=== PATIENT | male | born 1990 | race Two or more races ===

== ENCOUNTER 2017-09-22 12:26 | Emergency (ER) | payer MEDICAID ==
[~2017-09-22] VITALS: Ht 170.2 cm; Wt 132.7 kg
[~2017-09-22 12:26] MED LIST: ALBU8HFA PO
[2017-09-22 12:49] LABS: BASOPHILS # (AUTO) 0.2 X10'3 (0-0.2); BASOPHILS % (AUTO) 2.3 % (0-1); EOSINOPHILS # (AUTO) 0.5 X10'3 (0-0.9); EOSINOPHILS % (AUTO) 5.1 % (0-6); HEMATOCRIT 47.1 % (42.0-52.0); HEMOGLOBIN 15.9 g/dl (14.0-17.9); LYMPHOCYTES # (AUTO) 2.9 X10'3 (1.1-4.8); MEAN CORPUSCULAR HGB CONC 33.7 % (33.0-36.5); MEAN PLATELET VOLUME 8.5 FL (7.4-10.4); MONOCYTES # (AUTO) 0.9 X10'3 (0-0.9); MONOCYTES % (AUTO) 8.2 % (2-12); NEUTROPHILS # (AUTO) 5.9 X10'3 (1.8-7.7); NEUTROPHILS % (AUTO) 56.4 % (42-75); PLATELET COUNT 261 X10'3 (140-440); RED BLOOD COUNT 5.67 X10'6 (4.70-6.10); RED CELL DISTRIBUTION WIDTH 13.1 % (11.5-14.5); WHITE BLOOD COUNT 10.4 X10'3 (4.5-11.0)
[2017-09-22 12:56] LABS: PARTIAL THROMBOPLASTIN TIME 27 SECONDS (22-32); PROTHROMBIN TIME 10.3 SECONDS (9.0-12.0)
[2017-09-22 13:08] LABS: ALANINE AMINOTRANSFERASE 21 U/L (12-78); ALBUMIN 3.8 G/DL (3.4-5.0); ALKALINE PHOSPHATASE 102 IU/L (46-116); ANION GAP 8 (8-16); ASPARTATE AMINO TRANSFERASE 14 U/L (10-37); BILIRUBIN,TOTAL 0.3 MG/DL (0.1-1.0); BLOOD UREA NITROGEN 17 MG/DL (7-18); BUN/CREATININE RATIO 18.9 (5.4-32.0); CALCIUM 9.5 MG/DL (8.5-10.1); CHLORIDE 106 MMOL/L (99-107); GLUCOSE 95 MG/DL (70-104); POTASSIUM 4.4 MMOL/L (3.5-5.1); SODIUM 143 MMOL/L (135-145); TOTAL CARBON DIOXIDE 29.3 MMOL/L (24-32); TOTAL PROTEIN 7.6 G/DL (6.4-8.2); eGFR > 90 ML/MIN
[2017-09-22] MEDS ORDERED: aspirin 325mg tablet PO STA (13:11)
[2017-09-22] MEDS ORDERED: nitroGLYCERIN 0.4mg SUBLingual tab SL STA ×2 (13:11→13:27)
[2017-09-22 13:30] LABS: D-DIMER 0.22 MG/L FEU (0-0.50)
[2017-09-22] MEDS ORDERED: nitroGLYCERIN 0.4mg SUBLingual tab SL PRN (13:35)
[2017-09-22] MEDS ORDERED: PANT-47 PO (13:40)
[2017-09-22] MEDS ORDERED: IBUP-1984 PO (13:40)
[2017-09-22 13:57] VITALS: BP 114/47
== END 2017-09-22 13:58 | disposition home or self-care (01) ==
LOC: ER 12:27
DX: M94.0 Chondrocostal junction syndrome [Tietze] (principal); M54.31 Sciatica, right side; J45.909 Unspecified asthma, uncomplicated; F12.10 Cannabis abuse, uncomplicated; Z60.2 Problems related to living alone; Z59.0 Homelessness; Z79.82 Long term (current) use of aspirin
CPT/HCPCS: 36415; 71045; 80053; 84484; 85025; 85379; 85610; 85730; 93005; 99285

== ENCOUNTER 2017-10-05 00:31 | Emergency (ER) | payer MEDICAID ==
[~2017-10-05] VITALS: Ht 170.2 cm; Wt 133.6 kg
[~2017-10-05 00:31] MED LIST changes: +IBUP-1984 PO; +PANT-47 PO
[2017-10-05] MEDS ORDERED: dexamethasone 4mg tablet PO ONE (02:30)
[2017-10-05] MEDS ORDERED: ipratropium/albuterol 3ml nebule NEB ONE (02:30)
[2017-10-05 03:26] VITALS: BP 122/74
== END 2017-10-05 03:29 | disposition home or self-care (01) ==
LOC: ER 00:31
DX: J45.909 Unspecified asthma, uncomplicated (principal); F12.10 Cannabis abuse, uncomplicated; Z59.0 Homelessness; Z60.2 Problems related to living alone; Z88.8 Allergy status to other drugs, medicaments and biological substances
CPT/HCPCS: 93005; 94640; 94760; 99284; J8540

== ENCOUNTER 2019-08-12 01:23 | Emergency (ER) | payer MEDICAID, OTHER ==
[~2019-08-12] VITALS: Ht 170.2 cm; Wt 172.7 kg
[~2019-08-12 01:23] MED LIST changes: -IBUP-1984 PO
[2019-08-12] MEDS ORDERED: predniSONE 20 mg tablet PO ONE (01:45)
[2019-08-12] MEDS ORDERED: ipratropium/albuterol 3ml nebule NEB ONE (01:45)
[2019-08-12] MEDS ORDERED: PRED20TA PO (02:04)
[2019-08-12] MEDS ORDERED: ALBU8.5H8 INH (02:04)
[2019-08-12 02:30] VITALS: BP 110/65
== END 2019-08-12 02:31 | disposition home or self-care (01) ==
LOC: ER 01:23
DX: J45.901 Unspecified asthma with (acute) exacerbation (principal); F12.90 Cannabis use, unspecified, uncomplicated; Z60.2 Problems related to living alone; Z59.0 Homelessness; Z88.8 Allergy status to other drugs, medicaments and biological substances; Z79.899 Other long term (current) drug therapy
CPT/HCPCS: 94640; 99283; J7512; 94760

== ENCOUNTER 2020-12-04 13:44 | Emergency (ER) | payer SELFPAY ==
[~2020-12-04] VITALS: Ht 170.2 cm; Wt 160.3 kg
[~2020-12-04 13:44] MED LIST changes: +ALBU8.5H8 INH
[2020-12-04 14:19] VITALS: BP 142/106
[2020-12-04 14:56] LABS: BASOPHILS # (AUTO) 0.1 X10'3 (0-0.2); EOSINOPHILS # (AUTO) 1.1 X10'3 (0-0.9); EOSINOPHILS % (AUTO) 8.3 % (0-6); HEMATOCRIT 42.2 % (42.0-52.0); HEMOGLOBIN 13.5 g/dl (14.0-17.9); LYMPHOCYTES # (AUTO) 3.2 X10'3 (1.1-4.8); LYMPHOCYTES % (AUTO) 24.5 % (21-51); MEAN CORPUSCULAR HEMOGLOBIN 25.4 PG (27.0-31.0); MEAN CORPUSCULAR VOLUME 79.3 FL (78-98); MEAN PLATELET VOLUME 7.1 FL (7.4-10.4); MONOCYTES # (AUTO) 0.8 X10'3 (0-0.9); MONOCYTES % (AUTO) 6.1 % (2-12); NEUTROPHILS # (AUTO) 7.7 X10'3 (1.8-7.7); NEUTROPHILS % (AUTO) 60.1 % (42-75); PLATELET COUNT 343 X10'3 (140-440); RED BLOOD COUNT 5.32 X10'6 (4.70-6.10); WHITE BLOOD COUNT 12.9 X10'3 (4.5-11.0)
[2020-12-04 15:08] LABS: ALANINE AMINOTRANSFERASE 30 U/L (12-78); ALBUMIN 3.6 G/DL (3.4-5.0); ALBUMIN/GLOBULIN RATIO 0.8 (1.1-1.5); ALKALINE PHOSPHATASE 103 IU/L (46-116); ANION GAP 8 (8-16); ASPARTATE AMINO TRANSFERASE 16 U/L (10-37); BILIRUBIN,TOTAL 0.4 MG/DL (0.1-1.0); BLOOD UREA NITROGEN 10 MG/DL (7-18); CALCIUM 9.4 MG/DL (8.5-10.1); CHLORIDE 104 MMOL/L (99-107); CREATININE 0.77 MG/DL (0.60-1.10); GLUCOSE 94 MG/DL (70-104); POTASSIUM 3.9 MMOL/L (3.5-5.1); SODIUM 143 MMOL/L (135-145); TOTAL PROTEIN 8.1 G/DL (6.4-8.2); eGFR > 90 ML/MIN
[2020-12-04] MEDS ORDERED: METH-360 PO (17:07)
== END 2020-12-04 17:23 | disposition home or self-care (01) ==
LOC: ER 13:44
DX: R07.89 Other chest pain (principal); J45.909 Unspecified asthma, uncomplicated; F12.90 Cannabis use, unspecified, uncomplicated; Z60.2 Problems related to living alone; Z59.0 Homelessness; Z88.8 Allergy status to other drugs, medicaments and biological substances; Z79.899 Other long term (current) drug therapy
CPT/HCPCS: 36415; 71045; 80053; 83880; 84484; 85025; 93005; 99285

== ENCOUNTER 2021-11-02 00:27 | Emergency (ER) | payer SELFPAY ==
[~2021-11-02] VITALS: Ht 170.2 cm; Wt 168.2 kg
[~2021-11-02 00:27] MED LIST changes: +ALBU8.5H17 INH; -ALBU8.5H8 INH; +METH-360 PO
[2021-11-02] MEDS ORDERED: TETanus/Pertussis (Acell)/Diphther VAC/PF (Tdap-Adult) 0.5ml syringe IMVAC ONE (02:05)
[2021-11-02 03:25] VITALS: BP 161/90
== END 2021-11-02 03:40 | disposition home or self-care (01) ==
LOC: ER 00:28
DX: S01.511A Laceration without foreign body of lip, initial encounter (principal); S00.83XA Contusion of other part of head, initial encounter; S05.11XA Contusion of eyeball and orbital tissues, right eye, initial encounter; S00.12XA Contusion of left eyelid and periocular area, initial encounter; S09.90XA Unspecified injury of head, initial encounter; H53.8 Other visual disturbances; J45.909 Unspecified asthma, uncomplicated; F12.90 Cannabis use, unspecified, uncomplicated; Z88.8 Allergy status to other drugs, medicaments and biological substances; Z79.899 Other long term (current) drug therapy; Y04.8XXA Assault by other bodily force, initial encounter; Y93.89 Activity, other specified; Y92.89 Other specified places as the place of occurrence of the external cause; Y99.8 Other external cause status
CPT/HCPCS: 70450; 70486; 90471; 90715; 99284

== ENCOUNTER 2024-12-14 19:55 | Emergency (ER) | payer MEDICAID ==
[~2024-12-14] VITALS: Ht 167.6 cm; Wt 176.3 kg
[2024-12-14] MEDS ORDERED: AZIT-164 PO (21:02)
[2024-12-14] MEDS ORDERED: PRED20TA PO (21:02)
[2024-12-14] MEDS: predniSONE 20 mg tablet PO ONE (21:20)
[2024-12-14] MEDS: azithromycin 250mg tablet PO ONE (21:21)
[2024-12-14 21:26] VITALS: BP 142/84; PULSE 85; RESP 16; TEMP 98.3; O2SAT 97
== END 2024-12-14 21:28 | disposition home or self-care (01) ==
LOC: ER 19:56
DX: J68.0 Bronchitis and pneumonitis due to chemicals, gases, fumes and vapors (principal); F12.90 Cannabis use, unspecified, uncomplicated; Z88.8 Allergy status to other drugs, medicaments and biological substances
CPT/HCPCS: 71045; 93005; 99283; J7512

== ENCOUNTER 2024-12-30 22:38 | Emergency (ER) | payer MEDICAID ==
[~2024-12-30] VITALS: Ht 170.2 cm; Wt 175.0 kg
[~2024-12-30 22:38] MED LIST changes: +AZIT-164 PO; +PRED20TA PO
[2024-12-30 22:47] VITALS: TEMP 97.7
[2024-12-30] MEDS ORDERED: AMOX-580 PO (23:09)
[2024-12-30] MEDS ORDERED: CIPR10DR RIGHT EAR (23:09)
--- NOTE | 2024-12-30 23:10 | Physician Documentation ---
History of Present Illness ~ Chief Complaint: Ear Discharge Stated Complaint: EAR PAIN Time Seen by MD: 23:00 OK to notify your PCP?: Yes Primary Medical Doctor: DR CHAPMAN Source: patient Mode of Arrival: POV Exam Limitations: no limitations HPI This is a 34-year-old male who comes in complaining of discharge from his right ear. He says he has been off and on throughout the day. He says it was blood- tinged. He says he was lot of pain and pressure in the right side of the ear with decreased hearing. He denies fever, nausea or vomiting. Medication Reconciliation Allergies: Coded Allergies: diphenhydramine (Verified Allergy, Severe, 11/02/21) Uncoded Allergies: ALOVERA (Allergy, Severe, HIVES, SWELLING, 12/04/20) Scheduled Albuterol Sulfate (Proair Hfa), 2 PUFFS INH Q4HPRN Azithromycin (Zithromax), 1 TAB PO DAILY Methocarbamol (Robaxin-750), 1 TAB PO Q12H Pantoprazole Sodium (PROTONIX tablet), 40 MG PO QAM Prednisone* (Prednisone*), 3 TAB PO DAILY Scheduled PRN albuterol inhaler (Pro-Air Inhaler), 1-2 PUFFS PO Q4H PRN for SOB or wheezing Past Medical History Past Medical History: Asthma Past Surgical History: noncontributory Alcohol Use: None Drug Use: marijuana Lives with: Alone Occupation: employed Physical Exam Vital Signs: Temperature: 97.7, Source: Temporal, Heart Rate: 89, Respiratory Rate: 18, BP: 144/71, Pulse Oximetry: 98, Weight: 175.000 Oxygen Flow Rate: 0 Pulse Oximetry Reflects: adequate oxygenation General Appearance: alert, WD/WN, no apparent distress Ear To inspection of the right outer ear there was no erythema or edema surrounding the ear. There was no discharge from the opening of the ear canal. To inspection of the ear canal there is erythema and edema. The TM appears perfor ated. At this point it did not appreciate any discharge from the perforated TM or from the ear canal. Progress Results/Orders Results/Orders Vital Signs 12/30/24 22:47 Temp 97.7 Pulse 89 Resp 18 B/P (MAP) 144/71 Pulse Ox 98 O2 Flow Rate 0 Medical Decision Making Findings The patient appears to have right otitis externa and tympanic membrane perforation. I am going to place the patient on Augmentin 875 twice a day for 10 days and give Cipro otic solution. You can take ibuprofen for pain. Follow up with the primary care physician for recheck in the next one or two days and return to the ER for any worsening or concerning symptoms. Additional Comment Otalgia. Otitis externa. Otitis media. Tympanic membrane perforation. Eustachian tube dysfunction. Departure Disposition: HOME / SELF CARE / HOMELESS Impression: Primary Impression: Perforation of right tympanic membrane Condition: Stable Discharge Instructions: Eardrum Rupture, Adult Additional Instructions: Take all medications as prescribed. Ibuprofen for pain. Follow up with the primary care physician for recheck in the next one or two days. No water in the ear. Do not use Q-tips. Return to the ER for any worsening or concerning symptoms. Referrals: NO PRIMARY CARE PROVIDER (PCP) Prescriptions Ciprofloxacin Hcl/Hc Otic Susp* (Cipro Hc Otic Susp*) 10 Ml Bottle 3 DROP RIGHT EAR Q12H for 7 Days, #10 ML Prov: ANNETTE SORIA 12/30/24 Amox Tr/Potassium Clavulanate 875/125 MG (Augmentin 875/125 MG) 875 Mg-125 Mg Tablet 1 TAB PO Q12H for 10 Days, #20 TAB Prov: ANENTTE SORIA 12/30/24 Signature Scribe Signature: No scribe Attestation: The note accurately reflects work and decisions made by me.Annette GANT 12/30/24 23:09 ANNETTE SORIA Dec 30, 2024 23:10
[2024-12-30 23:11] VITALS: BP 139/82; PULSE 84; RESP 18; O2SAT 99
[2024-12-30] MEDS: ibuprofen tablet 400 MG TABLET PO ONE (23:14)
== END 2024-12-30 23:22 | disposition home or self-care (01) ==
LOC: ER 22:39
DX: H72.91 Unspecified perforation of tympanic membrane, right ear (principal); J45.909 Unspecified asthma, uncomplicated; Z88.8 Allergy status to other drugs, medicaments and biological substances
CPT/HCPCS: 99283